=== PATIENT | female | born 1990 | race American Indian/Alaskan Native ===

== ENCOUNTER → 2017-10-13 18:42 | Outpatient (CLI) | payer MEDICAID, SELFPAY ==
[2017-10-16 16:26] LABS: HPV Reflexed? NOT INDICATED
== END ==
PROVIDERS: Visit Provider Obstetrics & Gynecology
DX: Z12.4 Encounter for screening for malignant neoplasm of cervix (principal)
CPT/HCPCS: 88175; G0145

== ENCOUNTER → 2019-03-15 13:04 | Outpatient (CLI) | payer MEDICAID, SELFPAY ==
[2019-03-15 13:42] LABS: Amphetamine Urine VISTA POSITIVE (<1000 ng/mL); Barbiturate Urine VISTA NEGATIVE (< 200 ng/mL); Benzodiazepine Urine VISTA NEGATIVE (< 200 ng/mL); Cocaine Urine VISTA NEGATIVE (< 300 ng/mL); Ecstacy Urine VISTA POSITIVE (< 500 ng/mL); Methadone Urine VISTA NEGATIVE (< 300 ng/mL); PCP Urine VISTA NEGATIVE (< 25 ng/mL); THC Urine VISTA NEGATIVE (< 50 ng/mL)
[2019-03-15 13:47] LABS: Vista UDS pH Range 5
== END ==
PROVIDERS: PCP Family Medicine; Visit Provider Advanced Practice Midwife
DX: Z34.82 Encounter for supervision of other normal pregnancy, second trimester (principal); Z12.4 Encounter for screening for malignant neoplasm of cervix; Z11.3 Encounter for screening for infections with a predominantly sexual mode of transmission
CPT/HCPCS: 80307

== ENCOUNTER → 2019-04-13 11:37 | Outpatient (CLI) | payer MEDICAID, SELFPAY ==
[2015-09-02 16:56] VITALS: BMI 19.8
[2019-04-13 16:02] LABS: Absolute Lymphocyte Count 3.26 X10^3/uL (0.83-4.51); Absolute Neutrophil Count 4.8 X10^3/uL (2.0-7.7); Basophil# 0.08 X10^3/uL; Basophil% 0.9 % (0-1); Eosinophil# 0.13 X10^3/uL; Eosinophils% 1.5 % (0-5); Hematocrit 37.6 % (37-47); Hemoglobin 12.1 g/dL (12.0-15.0); Lymphocyte # 3.26 X10^3/ul (4.0); Lymphocyte % 36.4 % (19-41); Mean Corp Hgb Conc 32.2 g/dL (32-36); Mean Corpuscular Hgb 30.1 pg (27.0-32.0); Mean Corpuscular Volume 93.5 fL (81-99); Mean Platelet Vol. 10.2 fl (6.2-12.0); Monocyte# 0.64 X10^3/uL; Monocyte% 7.1 % (0-10); NRBC Flagged by Analyzer 0 % (0-5); Neutrophil # 4.81 X10^3/uL (2.7-7.7); Neutrophil % 53.7 % (47-70); Platelet Count 332 K/mm3 (150-450); RBC Distribution Width SD 47.9 fl (35.1-43.9); Red Blood Count 4.02 M/mm3 (4.2-5.4)
[2019-04-13 16:03] LABS: Color, Urine Yellow (Yellow); Glucose, Dipstick Normal (Normal); Ketone-Dipstick Negative (Negative); Leukocyte Esterase-Dipstick Negative /ul (Negative); Nitrite-Dipstick Negative (Negative); Occult Blood-Urine 250 /ul (Negative); Protein-Dipstick Negative (Negative); Specific Gravity, Urine 1.025 (1.002-1.030); Urine Bilirubin Dipstick Negative (Negative); Urine Clarity Sl. Cloudy (Clear); Urine Urobilinogen Normal (Normal)
[2019-04-13 16:20] LABS: Amphetamine Urine VISTA POSITIVE (<1000 ng/mL); Barbiturate Urine VISTA NEGATIVE (< 200 ng/mL); Benzodiazepine Urine VISTA NEGATIVE (< 200 ng/mL); Cocaine Urine VISTA NEGATIVE (< 300 ng/mL); Ecstacy Urine VISTA NEGATIVE (< 500 ng/mL); Methadone Urine VISTA NEGATIVE (< 300 ng/mL); PCP Urine VISTA NEGATIVE (< 25 ng/mL); THC Urine VISTA NEGATIVE (< 50 ng/mL); Vista UDS pH Range 6
[2019-04-13 16:21] LABS: Thyroid Stim Hormone (TSH) 1.36 uIU/mL (0.358-3.74)
[2019-04-14 12:14] LABS: HIV - WCH Non-Reactive (Nonreactive); Hepatitis B Surface Antigen Non-Reactive (Nonreactive); Hepatitis C Antibody Non-Reactive (Nonreactive); Rubella IgG 64.5 IU/mL; Vitamin D,25 Hydroxy 10.2 ng/mL (29.95-100.01)
[2019-04-15 03:16] LABS: Prenatal RPR NONREACTIVE (NONREACTIVE)
[2019-04-16 12:07] LABS: AFP MoM Value 1.03 (.); Comment Report (.); DIA MoM Value 1.72 (.); DSR (By Age) 613 (.); DSR (Second Trimester) 5468 (.); Gestat. Age Based On As provided (.); Gestational Age 17.7 WEEKS (.); Insulin Dep Diabetes No (.); hCG MoM 0.49 (.); hCG Value 13679 mIU/mL (.)
== END ==
PROVIDERS: Visit Provider Advanced Practice Midwife
DX: Z34.82 Encounter for supervision of other normal pregnancy, second trimester (principal)
CPT/HCPCS: 36415; 80307; 81002; 82105; 82306; 82677; 84443; 84702; 85025; 86703; 86762; 86803; 87340

== ENCOUNTER → 2019-07-01 17:31 | Outpatient (CLI) | payer MEDICAID, SELFPAY ==
[2019-07-01 17:37] LABS: Hematocrit 31.9 % (37-47); Hemoglobin 10.3 g/dL (12.0-15.0); Mean Corp Hgb Conc 32.3 g/dL (32-36); Mean Corpuscular Hgb 31.8 pg (27.0-32.0); Mean Corpuscular Volume 98.5 fL (81-99); Mean Platelet Vol. 10.5 fl (6.2-12.0); Platelet Count 322 K/mm3 (150-450); RBC Distribution Width CV 13.2 % (11.6-14.6); Red Blood Count 3.24 M/mm3 (4.2-5.4); White Blood Count 10.6 K/mm3 (4.4-11.0)
[2019-07-01 17:53] LABS: Glucose Challenge Gest 1H 50g 120 mg/dL (70-140)
[2019-07-01 18:02] LABS: Vitamin D,25 Hydroxy 29.2 ng/mL
[2019-07-01 18:07] LABS: Amphetamine Urine VISTA NEGATIVE (<1000 ng/mL); Barbiturate Urine VISTA NEGATIVE (< 200 ng/mL); Benzodiazepine Urine VISTA NEGATIVE (< 200 ng/mL); Cocaine Urine VISTA NEGATIVE (< 300 ng/mL); Ecstacy Urine VISTA NEGATIVE (< 500 ng/mL); Methadone Urine VISTA NEGATIVE (< 300 ng/mL); PCP Urine VISTA NEGATIVE (< 25 ng/mL); THC Urine VISTA NEGATIVE (< 50 ng/mL); Vista UDS pH Range 6
[2019-07-02 16:37] LABS: Ferritin 30 ng/mL (8-252)
== END ==
PROVIDERS: Visit Provider Obstetrics & Gynecology
DX: O26.899 Other specified pregnancy related conditions, unspecified trimester (principal); E55.9 Vitamin D deficiency, unspecified; Z3A.00 Weeks of gestation of pregnancy not specified
CPT/HCPCS: 80307; 82306; 82728; 82950; 85027

== ENCOUNTER → 2019-07-27 13:36 | Outpatient (CLI) | payer MEDICAID, SELFPAY ==
[2015-09-02 16:56] VITALS: BMI 19.8
[2019-07-27 15:28] LABS: AST(SGOT) 16 U/L (15-37); Alanine Aminotransfer ALT/SGPT 21 U/L (13-56); Albumin, Serum 2.7 g/dL (3.2-5.0); Alkaline Phosphatase 179 U/L (45-117); Bilirubin, Direct 0.07 mg/dL (0.00-0.30); Globulin 4.2 g/dL (2.2-4.2); Protein, Total 6.9 g/dL (6.4-8.2)
== END ==
PROVIDERS: Visit Provider Obstetrics & Gynecology
DX: O26.93 Pregnancy related conditions, unspecified, third trimester (principal); M54.6 Pain in thoracic spine; R10.11 Right upper quadrant pain; Z3A.00 Weeks of gestation of pregnancy not specified
CPT/HCPCS: 36415; 80076

== ENCOUNTER → 2019-08-24 16:00 | Outpatient (CLI) | payer MEDICAID, SELFPAY ==
[2019-08-24 17:34] VITALS: BMI 25.9
== END ==
PROVIDERS: Visit Provider Obstetrics & Gynecology
DX: Z36.85 Encounter for antenatal screening for Streptococcus B (principal)
CPT/HCPCS: 87081

== ENCOUNTER 2019-08-24 17:14 | Outpatient (CLI) | payer MEDICAID, SELFPAY ==
[2015-09-02 16:56] VITALS: BMI 19.8
[2019-08-24 17:34] VITALS: BMI 25.9
[2019-08-24 19:05] LABS: Thyroid Stim Hormone (TSH) 1.09 uIU/mL (0.358-3.74)
[2019-08-24 19:06] LABS: Amphetamine Urine VISTA NEGATIVE (<1000 ng/mL); Barbiturate Urine VISTA NEGATIVE (< 200 ng/mL); Benzodiazepine Urine VISTA NEGATIVE (< 200 ng/mL); Cocaine Urine VISTA NEGATIVE (< 300 ng/mL); Ecstacy Urine VISTA NEGATIVE (< 500 ng/mL); Methadone Urine VISTA NEGATIVE (< 300 ng/mL); PCP Urine VISTA NEGATIVE (< 25 ng/mL); THC Urine VISTA NEGATIVE (< 50 ng/mL); Vista UDS pH Range 6
[2019-08-24 20:00] VITALS: PULSE 89; O2SAT 98
[2019-08-24 20:03] VITALS: BP 117/70; PULSE 93
[2019-08-24 20:05] VITALS: BP 117/70; PULSE 96; TEMP 36.6; O2SAT 98
--- NOTE | 2019-08-24 20:46 | OB.TRI.HP_ITS ---
- Problem List (1) 36 weeks gestation of Status: Acute (2) heart rate nonreactive Status: Acute History of Present Illness Date of Service: 08/24/19 Was patient seen by the physician?: Yes Reason For Visit: EXTENDED MONITORING Date of Service: 08/24/19 Final MAC: 09/16/19 Final MAC Source: US <20 weeks Gestational age: 36 Weeks and 5 Days History of Present Illness: Today in CNM office, heart rate with doppler was 180-190. Was put on NST and non-reactive FHR with baseline of 155. Sent to for extended monitoring. Once in triage FHR baseline of 150 with +accels to 180. Variables noted with FHR down to 120. No UC noted. With variables noted, will keep overnight for monitoring. Allergies cefaclor [From Ceclor] Allergy (Verified 09/02/15 16:56) Hives Penicillins Allergy (Verified 09/02/15 16:56) Hives Laboratory Studies: Laboratory Tests 08/24/19 08/24/19 Range/Units 18:35 18:30 TSH 1.09 (0.358-3.74) uIU/mL Urine Opiates Screen NEGATIVE (< 300 ng/mL) Urine Methadone Screen NEGATIVE (< 300 ng/mL) Ur Barbiturates Screen NEGATIVE (< 200 ng/mL) Ur Phencyclidine Scrn NEGATIVE (< 25 ng/mL) Ur Amphetamines Screen NEGATIVE (<1000 ng/mL) U Methamphetamin-MDMA NEGATIVE (< 500 ng/mL) U Benzodiazepines Scrn NEGATIVE (< 200 ng/mL) Urine Cocaine Screen NEGATIVE (< 300 ng/mL) U Cannabinoids Screen NEGATIVE (< 50 ng/mL) Ur Drug Screen Comment Review of Systems Constitutional: Denies: Chills, Fever, Weight Change HEENT: Denies: Head Aches, Sinus Congestion, Sinus Drainage Cardiovascular: Denies: Chest Pain, Palpitations Respiratory: Denies: Cough, Shortness of breath at rest, Sputum production Gastrointestinal: Denies: Abdominal Pain, Nausea, Vomiting Genitourinary: Denies: Dysuria Musculoskeletal: Denies: Joint Pain, Joint Tenderness Skin: Denies: Rash, Wounds Neurological: Denies: Numbness, Tingling, Focal weakness Psychiatric: Denies: Anxiety, Depression, Homicidal Ideations, Suicidal Ideations Hematologic/ Lymphatic: Denies: Easy Bruising, Easy Bleeding Physical Exam Vitals: Vital Signs Temp Pulse BP Pulse Ox 97.9 F 96 117/70 98 08/24/19 20:05 08/24/19 20:05 08/24/19 20:05 08/24/19 20:05 General: Alert, Oriented x3, No apparent distress HEENT: Atraumatic, Normocephalic. Negative for: Thyromegaly, Lymphadenopathy Cardiovascular: Regular rate, Regular Rhythm Lungs: Clear to auscultation Abdomen: Bowel Sounds Present, Gravid Neurological: Deep Tendon Reflexes 2+/4 and Symmetrical, Neuro grossly intact [employer]: Normal external genitalia. Negative for: Vulvar lesions Estimated gestational size: Appropriate for gestational size Presentation: Cephalic Cervix Dilation (cm): 1 Station: -3 Effacement (%): 25 NST - FHR Rate Baby A Baseline: 130 Variability:: Moderate Accelerations:: 15 x 15 Decelerations:: None NST Reactive:: Yes FHR Category:: Category I Uterine Activity:: quiet Impression/Plan A/P: at 36w5d gestation Non-reassuring NST in CNM office and in triage, now FHR baseline 130 with +accels, -decels and moderate variability Category I NST Patient admits to smoking tobacco prior to visit today Will observe overnight without Nicotine exposure Continuous monitoring
[2019-08-25 00:43] VITALS: BP 125/66; PULSE 100; TEMP 37.1
[2019-08-25] MEDS: Mag Hydrox/Al Hydrox/Simeth 30 ML UDC PO (01:15)
[2019-08-25 06:43] VITALS: BP 117/63; PULSE 77; TEMP 36.4; O2SAT 97
[2019-08-25 07:12] VITALS: BP 111/63; PULSE 77; TEMP 36.7
--- NOTE | 2019-08-25 08:32 | PCM.PN.OB ---
Patient Problems: Active and Suspected Problems 36 weeks gestation of (Acute) heart rate nonreactive (Acute) Subjective: Feeling well this morning with lots of FM. Would like to go home. Will try to decrease smoking and coffee intake. Will go to the chiropractor twice a week until delivery. Objective: VSS. NST FHR baseline 120, +accels, -decels, moderate variability. movement heard on NST - Physical Exam Vitals/I&O's: Vital Signs Temp Pulse BP Pulse Ox 98.1 F 77 111/63 97 08/25/19 07:12 08/25/19 07:12 08/25/19 07:12 08/25/19 06:43 Weight: 73.028 kg Body Mass Index (BMI) 25.9 General: Alert, Oriented x3, Cooperative HEENT: Atraumatic, PERRLA, EOMI, Normocephalic Neck: Supple, No JVD, Negative Carotid Bruits Lungs: Clear to auscultation, Normal air movement Cardiovascular: Regular rate, No murmurs Abdomen: Bowel Sounds Present, Soft, Non Tender Extremities: No edema, Capillary Refill Less than 3 Seconds Skin: No rashes, No breakdown Musculoskeletal: No Tenderness to Palpation of Joints or Extremities Neurological: Cranial nerves II-XII grossly intact Psych/Mental Status: Normal Affect, Appropriate Laboratory Results 08/24/19 18:30: TSH 1.09 08/24/19 18:35: Urine Opiates Screen NEGATIVE, Urine Methadone Screen NEGATIVE, Ur Barbiturates Screen NEGATIVE, Ur Phencyclidine Scrn NEGATIVE, Ur Amphetamines Screen NEGATIVE, U Methamphetamin-MDMA NEGATIVE, U Benzodiazepines Scrn NEGATIVE, Urine Cocaine Screen NEGATIVE, U Cannabinoids Screen NEGATIVE, Ur Drug Screen Comment Current Medications Al Hydroxide/Mg Hydroxide (Mylanta Ii) 30 ml PO Q4H PRN PRN PRN Reason: HEARTBURN Last Admin: 08/25/19 01:15 Dose: 30 ml Documented by: Medical Necessity - Tobacco Use Smoking Status: Current every day smoker Assessment/Plan All Active Problems 36 weeks gestation of (Acute) heart rate nonreactive (Acute) A/P: NST reactive, Category I overnight with FHR baseline of 120 Discussed effects of Nicotine and Caffeine on FHR Sister in law is here for support and discussed plan Will start twice weekly NSTs in the CNM office on a /Fri schedule To discharge home and understands when to call or come in
== END 2019-08-25 09:05 | disposition home or self-care (01) ==
LOC: OBT 17:55 → WPOUT 17:55 → WP 18:26
PROVIDERS: Referring Provider Obstetrics & Gynecology; Visit Provider Obstetrics & Gynecology
DX: O36.8330 Maternal care for abnormalities of the fetal heart rate or rhythm, third trimester, not applicable or unspecified (principal); O99.333 Smoking (tobacco) complicating pregnancy, third trimester; F17.200 Nicotine dependence, unspecified, uncomplicated; Z36.85 Encounter for antenatal screening for Streptococcus B; Z88.0 Allergy status to penicillin; Z88.1 Allergy status to other antibiotic agents; Z3A.36 36 weeks gestation of pregnancy
CPT/HCPCS: 59025; 59050; 80307; 84443; 87081; 99218; G0378

== ENCOUNTER 2019-09-09 13:15 | Inpatient (IN) | payer MEDICAID, SELFPAY ==
[2019-09-09] VITALS (38 sets, daily range): BP systolic 108–125; BP diastolic 58–74; PULSE 75–101; TEMP 36.5–37.4; O2SAT 98–99; BMI 27.0
[2019-09-09] MEDS: Lactated Ringers 1,000 ML 50 ML IV (13:45)
[2019-09-09 14:00] LABS: Absolute Lymphocyte Count 2.72 X10^3/uL (0.83-4.51); Basophil# 0.06 X10^3/uL; Basophil% 0.6 % (0-1); Eosinophil# 0.13 X10^3/uL; Eosinophils% 1.2 % (0-5); Hematocrit 33.9 % (37-47); Hemoglobin 10.9 g/dL (12.0-15.0); Lymphocyte # 2.72 X10^3/ul (4.0); Mean Corp Hgb Conc 32.2 g/dL (32-36); Mean Corpuscular Hgb 31.1 pg (27.0-32.0); Mean Corpuscular Volume 96.6 fL (81-99); Mean Platelet Vol. 11.3 fl (6.2-12.0); Monocyte# 0.89 X10^3/uL; Monocyte% 8.2 % (0-10); NRBC Flagged by Analyzer 0 % (0-5); Neutrophil # 6.96 X10^3/uL (2.7-7.7); Neutrophil % 64.1 % (47-70); Platelet Count 290 K/mm3 (150-450); RBC Distribution Width CV 13.3 % (11.6-14.6); RBC Distribution Width SD 47.1 fl (35.1-43.9); Red Blood Count 3.51 M/mm3 (4.2-5.4); White Blood Count 10.9 K/mm3 (4.4-11.0)
[2019-09-09 14:10] LABS: Amphetamine Urine VISTA NEGATIVE (<1000 ng/mL); Barbiturate Urine VISTA NEGATIVE (< 200 ng/mL); Benzodiazepine Urine VISTA NEGATIVE (< 200 ng/mL); Cocaine Urine VISTA NEGATIVE (< 300 ng/mL); Ecstacy Urine VISTA NEGATIVE (< 500 ng/mL); Methadone Urine VISTA NEGATIVE (< 300 ng/mL); PCP Urine VISTA NEGATIVE (< 25 ng/mL); THC Urine VISTA NEGATIVE (< 50 ng/mL); Vista UDS pH Range 7
[2019-09-09] MEDS: Oxytocin 30 units/NS 500 ml 30 UNITS/500 ML IV.SOLN IV (14:50)
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
[2019-09-09] MEDS: Lactated Ringers 500 ML 999 ML IV (15:23)
[2019-09-09] MEDS: fentaNYL-bupivacaine (epidural) 100 ML BAG EPIDURAL (16:35)
[2019-09-09] MEDS: Lactated Ringers 1,000 ML 200 ML IV (20:07)
[2019-09-09] MEDS: Oxytocin 30 units/NS 500 ml 30 UNITS/500 ML IV.SOLN 334 UNITS IV (20:50)
--- NOTE | 2019-09-09 21:21 | PCM.OPRPT ---
Problem List (1) 39 weeks gestation of Status: Acute Vaginal Delivery Maternal Presentation: Elective Induction Method of Induction: Pitocin, Amniotomy Amniotic Membrane Rupture Type: Artificial Amniotic Fluid Description: Clear Final MAC: 09/16/19 Final MAC Source: US <20 weeks Gestational age: 39 Weeks and 0 Days Date of Procedure: 09/09/19 Pre-Operative Diagnosis: IOL Post-Operative Diagnosis: Surgery/ Procedure Performed: Spontaneous Vaginal Delivery Anesthesiologist: Trinidad Mcnally Type of Anesthesia: Epidural Description of Procedure: Patient was FD at +2 station with spontaneous urge to push. She pushed well to deliver head in OA to MARIO with loose nuchal reduced at perineum, with snug shoulders. After approx 42 seconds of maternal effort and CNM assist, body delivered. The was placed on the maternal abdomen. The cord was doubly clamped and cut by adoptive father under CNM supervision at approximately 2 minutes of life and further attended by nursery personnel. Cord blood was obtained. With gentle traction the placenta delivered spontaneously and appeared intact on inspection. Intact perineum upon inspection. EBL 100. Apgars 8/9. Sponge and needle counts correct x 2. Presentation: Vertex, MARIO Placental Delivery Description: Spontaneous Placenta Disposition: [facility] Cord Vessel Description: 3 Vessels Cord Entanglement: Around neck x 1, loose Drain: Baca to straight drain Estimated Blood Loss: 100 Infant A gender: Female (1 minute): 8 (5 minute): 9 Episiotomy Description: None Laceration: None Medications given after delivery: IV Pitocin
--- NOTE | 2019-09-09 21:29 | DCINST_ITS ---
<Ana Ball - Last Filed: 09/09/19 21:29> Discharge Diet: No Restrictions Discharge Activity: Return to Normal Activity, May not drive while taking narcotic pain medications., May Shower May resume sexual activity in: 4-6 weeks Additional Activity Instructions:: Nothing in the vagina for 4-6 weeks. You may return to work/school in 6 weeks. Call your doctor if your incision/area has: Continuous Slow Oozing, Sudden Increased Bleeding, Increased Pain/ Swelling, Increased Redness, Foul Smelling Discharge Additional Instructions: If you experience any of the following, contact your healthcare provider. * Bleeding that soaks a pad every hour for 2 hours * Fever 100.4 or higher * Unrelieved incision or abdominal pain * Swelling, redness, discharge or bleeding from your incision or episiotomy site * Your incision begins to separate * Problems urinating (including inability to urinate or burning while urinating). * Visual changes * Severe headache * Flu-like symptoms * Pain or redness in one of both of your breasts * Pain, warmth, tenderness or swelling in your legs, especially the calf area * Frequent nausea and vomiting * Symptoms of depression or anxiety If you experience any of the following, call 911 or go to the nearest Emergency Room. * Chest pain * Problems breathing * Seizure activity * Partial or complete paralysis of a body part, slurred speech, weakness or drooping of the face, or a sudden inability to walk or hold your balance Allergies/Adverse Reactions: Allergies cefaclor [From Ceclor] Allergy (Verified 09/09/19 13:49) Hives Penicillins Allergy (Verified 09/09/19 13:49) Hives Medications to take at Discharge Ferrous Sulfate [Iron Supplement] 325 mg PO DAILY 07/21/14 Vits [Prenatabs FA ] 1 tablet PO DAILY 07/21/14 Cholecalciferol (Vitamin D3) [Vitamin D3] 2 cap PO BID 08/24/19 Magnesium 250 mg PO TID 09/09/19 Please Follow Up With: Ana Ball CNM When: Call to make an appointment with your CNM in 2 weeks for a telehealth visit and 6 weeks for a routine PP visit. Test Results: Test results from this visit will be discussed in further detail at your follow- up appointment, if applicable. <Britney Vasquez - Last Filed: 09/10/19 08:43> Additional Instructions: If you experience any of the following, contact your healthcare provider. * Bleeding that soaks a pad every hour for 2 hours * Fever 100.4 or higher * Unrelieved incision or abdominal pain * Swelling, redness, discharge or bleeding from your incision or episiotomy site * Your incision begins to separate * Problems urinating (including inability to urinate or burning while urinating). * Visual changes * Severe headache * Flu-like symptoms * Pain or redness in one of both of your breasts * Pain, warmth, tenderness or swelling in your legs, especially the calf area * Frequent nausea and vomiting * Symptoms of depression or anxiety If you experience any of the following, call 911 or go to the nearest Emergency Room. * Chest pain * Problems breathing * Seizure activity * Partial or complete paralysis of a body part, slurred speech, weakness or drooping of the face, or a sudden inability to walk or hold your balance Test Results: Test results from this visit will be discussed in further detail at your follow- up appointment, if applicable.
[2019-09-09] MEDS: Ibuprofen 600 MG Tablet PO (22:26)
[2019-09-09] MEDS: Zolpidem Tartrate 5 MG Tablet PO (23:09)
[2019-09-10 04:50] VITALS: BP 107/57; PULSE 80; RESP 18; TEMP 36.7
[2019-09-10 04:55] VITALS: BP 107/57; PULSE 80
[2019-09-10] MEDS: Ibuprofen 600 MG Tablet PO (05:00)
[2019-09-10 08:35] VITALS: BP 109/61; PULSE 83; RESP 16; TEMP 37.3
[2019-09-10 08:42] VITALS: BP 109/61; PULSE 83
--- NOTE | 2019-09-10 08:44 | PCM.PN.OB ---
Patient Problems: Active and Suspected Problems 39 weeks gestation of (Acute) Subjective: No issues overnight. Feels well. Desires discharge to home today. Reports minimal lochia. Denies pain. Mood doing ok. Viviana has scheduled follow up with her counselor for next week since she has a hx depression. - Physical Exam Vitals/I&O's: Vital Signs Temp Pulse Resp BP Pulse Ox 98.1 F 83 18 109/61 99 09/10/19 04:50 09/10/19 08:42 09/10/19 04:50 09/10/19 08:42 09/09/19 19:27 Weight: 76.6 kg Body Mass Index (BMI) 27.0 Intake and Output for Last 24 Hours 09/08/19 09/09/19 09/10/19 23:59 23:59 23:59 Intake Total 2346.87 / 2346.87 Output Total 250 / 250 600 / 600 Balance 2096.87 / 2096.87 -600 / -600 General: Alert, Oriented x3, Cooperative, No apparent distress HEENT: Atraumatic, Normocephalic Lungs: Clear to auscultation, Normal air movement Cardiovascular: Regular rate, Regular Rhythm, Normal S1, Normal S2 Abdomen: Soft, Non Tender, Non-Distended, - - Fundus firm and nontender, lochia scant Extremities: No edema, No Calf Tenderness Neurological: Neuro grossly intact Psych/Mental Status: Normal Affect, Appropriate, Alert and oriented to time, place, person, mood and affect Laboratory Results 09/09/19 13:30: Urine Opiates Screen NEGATIVE, Urine Methadone Screen NEGATIVE, Ur Barbiturates Screen NEGATIVE, Ur Phencyclidine Scrn NEGATIVE, Ur Amphetamines Screen NEGATIVE, U Methamphetamin-MDMA NEGATIVE, U Benzodiazepines Scrn NEGATIVE, Urine Cocaine Screen NEGATIVE, U Cannabinoids Screen NEGATIVE, Ur Drug Screen Comment 09/09/19 13:45: WBC 10.9, RBC 3.51 L, Hgb 10.9 L, Hct 33.9 L, MCV 96.6, MCH 31.1, MCHC 32.2, RDW Std Deviation 47.1 H, RDW Coeff of Julien 13.3, Plt Count 290, MPV 11.3, Immature Gran % (Auto) 0.900, Neut % (Auto) 64.1, Lymph % (Auto) 25.0, [place] % (Auto) 8.2, Eos % (Auto) 1.2, Baso % (Auto) 0.6, Absolute Neuts (auto) 7.0, Absolute Lymphs (auto) 2.72, Nucleated RBC % 0 09/09/19 13:45: Blood Type O POSITIVE, Antibody Screen NEGATIVE Current Medications Acetaminophen (Tylenol) 1,000 mg PO Q8H PRN PRN PRN Reason: Pain Score 1-3/10 Bisacodyl (Dulcolax) 10 mg RECTAL UD PRN PRN Reason: If no BM Hydrocortisone (Hytone) 1 applic TOPICAL TID PRN PRN; Protocol PRN Reason: Discomfort Ibuprofen (Motrin) 600 mg PO Q6H PRN PRN PRN Reason: Pain Score 1-3/10 Last Admin: 09/10/19 05:00 Dose: 600 mg Documented by: Methylergonovine Maleate (Methergine) 0.2 mg IM X1 PRN PRN Reason: Excess bleeding/uterine atony Ondansetron HCl (Zofran) 4 mg IV Q4H PRN PRN PRN Reason: Nausea Senna/Docusate Sodium (Senokot-S, Manasa-Colace) 1 - 2 tablet PO DAILY PRN PRN PRN Reason: Constipation Simethicone (Mylicon) 80 mg PO PCHS PRN PRN Reason: Indigestion/Stomach pain Sodium Chloride () 5 - 15 ml IV UD PRN PRN Reason: SALINE FLUSH Throat Lozenges (Dermoplast (Sp)) 1 applic TOPICAL 4X/DAY PRN PRN; Protocol PRN Reason: Pain/Inflammation Zolpidem Tartrate (Ambien (Generic)) 5 mg PO QHS PRN PRN PRN Reason: Insomnia Last Admin: 09/09/19 23:09 Dose: 5 mg Documented by: Medical Necessity - Tobacco Use Smoking Status: Light Smoker (<10/day) Assessment/Plan All Active Problems 36 weeks gestation of (Acute) heart rate nonreactive (Acute) 39 weeks gestation of (Acute) 29yo PPD#1 s/p doing well. -Infant released for family adoption -Social work consultation today -Will d/c later today
[2019-09-10] MEDS: Acetaminophen 500 MG Tablet 1000 MG PO (08:48)
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
--- NOTE | 2019-09-10 12:00 | CASEMGMT ---
Social Work Labor and Delivery Note Regarding: Adoption planning Summary: Mother of baby (MOB) reports intention to follow through with adoption planning. Received copy of Power of Sole Cementer for mother to sign, which gives the prospective adoptive parents the authority to make decisions for baby as well as consent for baby to be released from the hospital with adoptive parents. This jingle writer had [facility] insurance risk analystjewelry manager to ensure this power of attorney at law would suffice. Presented mother with the form, which mother signed, witnessed by this jingle writer and RN Thais Chance. Presented, reviewed and educated MOB to hospital paperwork. MOB agreed to sign all paperwork to help facilitate adoption planning. Forms signed: Power of attorney at law for baby as provided by mother?s attorney at law, 3 copy's signed (placed on baby?s chart, one to mother, and one for adoptive parents) Adoption: Consent to Care of (placed on baby?s chart) Permission for Release of (placed on baby chart) Releases of information to Sole Cementer Karen Morrissey and then a limited release to the adoptive parents (placed on baby?s chart) Release of information to Sole Cementer Karen Morrissey, placed on mother?s chart. * mother had also signed a release with Karen, prior to admission and this was also placed in the record. Plan: mother discharging home today with support from family and resources provided. Baby to discharge discharge with prospective adoptive parents when ready. -LAUREL Powell, AREA SAFETY MANAGER
[2019-09-10 12:10] VITALS: BP 112/58; PULSE 75; RESP 18; TEMP 36.6
[2019-09-10] MEDS: Senna/Docusate Sodium 1 Tablet PO (12:15)
[2019-09-10 12:17] VITALS: BP 112/58; PULSE 75
== END 2019-09-10 12:40 | disposition home or self-care (01) | DRG 560 ==
PROVIDERS: Admitting Provider Obstetrics & Gynecology; Visit Provider Obstetrics & Gynecology
DX: O36.8330 Maternal care for abnormalities of the fetal heart rate or rhythm, third trimester, not applicable or unspecified (principal); Z3A.39 39 weeks gestation of pregnancy; Z37.0 Single live birth; O99.334 Smoking (tobacco) complicating childbirth; F17.210 Nicotine dependence, cigarettes, uncomplicated; O69.81X0 Labor and delivery complicated by cord around neck, without compression, not applicable or unspecified; F15.11 Other stimulant abuse, in remission
CPT/HCPCS: 59025; 59050; 80307; 85025; 86850; 86900; 86901; 99218; J7120; G0378

== ENCOUNTER → 2019-11-23 | Outpatient (CLI) | payer MEDICAID, SELFPAY ==
[2019-09-09 13:52] VITALS: BMI 27.0
[2019-11-27 12:07] LABS: Age Gdln ACOG Testing 30-65 (.)
[2019-11-27 13:37] LABS: HPV APTIMA, High Risk Negative (Negative)
[2019-11-27 13:38] LABS: HPV Reflexed? YES, CHARGE PATIENT
== END | disposition home or self-care (01) ==
LOC: LABSPEC 12:59
PROVIDERS: Visit Provider Obstetrics & Gynecology
DX: Z12.4 Encounter for screening for malignant neoplasm of cervix (principal)
CPT/HCPCS: 87624; 88175; G0145